=== PATIENT | female | born 1980 | race Two or more races ===

== ENCOUNTER 2023-06-02 14:36 | Emergency (ER) | payer MEDICAID, OTHER ==
[~2023-06-02] VITALS: Ht 154.9 cm; Wt 72.2 kg
[2023-06-02 16:06] LABS: Basophils # (auto) 0 10 ^3/uL (0-0.2); Basophils % (auto) 0.4 % (0.0-2.0); Eosinophils # (auto) 0 10 ^3/uL (0-0.8); Eosinophils % (auto) 0.4 % (0.0-7.0); Hematocrit 38.6 % (36.0-46.0); Hemoglobin 12.5 g/dL (12.2-16.2); Lymphocytes # (auto) 1.5 10 ^3/uL (0.4-5.4); Lymphocytes % (auto) 22.9 % (10.0-50.0); Mean Corpuscular Hemoglobin 28.5 pg (28.0-32.0); Mean Corpuscular Hgb Conc. 32.4 g/dL (32.0-36.0); Mean Corpuscular Volume 87.9 fL (80.0-100.0); Monocytes # (auto) 0.3 10 ^3/uL (0-1.3); Monocytes % (auto) 4.1 % (0.0-12.0); Neutrophils # (auto) 4.7 10 ^3/uL (1.6-8.6); Neutrophils % (auto) 72.2 % (37.0-80.0); Nucleated Red Blood Cells % 0.1 %; Red Blood Cells 4.39 10^6/uL (4.0-5.20); White Blood Cell 6.5 10^3/uL (4.4-10.8)
[2023-06-02 16:07] LABS: Alanine Aminotransferase 67 U/L (7-40); Albumin 4.4 g/dL (3.2-4.8); Alkaline Phosphatase 105 U/L (46-116); Anion Gap 10 (5-15); Aspartate Aminotransferase 96 U/L (13-40); Calcium 8.3 mg/dL (8.5-10.1); Carbon Dioxide 27 mmol/L (20-30); Chloride 100 mmol/L (98-107); Glucose 104 mg/dL (74-106); Sodium 137 mmol/L (136-145)
[2023-06-02 16:08] LABS: Bilirubin, Total 0.6 mg/dL (0.2-1.0)
[2023-06-02 16:11] LABS: Red Cell Distribution Width 21.1 % (11.8-14.3)
[2023-06-02 16:16] LABS: BUN/Creatinine Ratio 8.3 (10.0-20.0); Blood Urea Nitrogen < 5 mg/dL (9-23)
[2023-06-02 16:18] LABS: Potassium 2.7 mmol/L (3.5-5.1)
[2023-06-02] MEDS ORDERED: POTASSIUM CHL 20 Meq TABLET PO ONE ×2 (16:45→21:00)
[2023-06-02 17:06] LABS: Urine Bacteria FEW /hpf (None Seen); Urine Blood Negative /uL (Negative); Urine Clarity Clear (Clear); Urine Color Colorless (Yellow); Urine Protein, UAD Negative (Negative); Urine Specific Gravity 1.009 (1.001-1.035); Urine Urobilinogen Normal (Negative); Urine WBC 1 /hpf (0 - 5)
[2023-06-02 17:39] VITALS: BP 127/95; RESP 18; TEMP 97.2; O2SAT 99
[2023-06-02] MEDS ORDERED: MAGNESIUM OXIDE 400 MG TAB PO ONE (18:00)
[2023-06-02] MEDS ORDERED: MAGNESIUM SULFATE 1GM/100ML 100 ML IV ONE (18:00)
[2023-06-02 21:45] VITALS: PULSE 78
[2023-06-02 21:50] LABS: Chloride 100 mmol/L (98-107); Sodium 138 mmol/L (136-145)
[2023-06-02 21:51] LABS: Anion Gap 11 (5-15); Calcium 8.4 mg/dL (8.5-10.1); Carbon Dioxide 27 mmol/L (20-30)
[2023-06-02 21:56] LABS: BUN/Creatinine Ratio 8.1 (10.0-20.0); Blood Urea Nitrogen < 5 mg/dL (9-23); Glucose 105 mg/dL (74-106)
== END 2023-06-03 02:40 | disposition left against medical advice (07) ==
LOC: ER 14:36
DX: E87.6 Hypokalemia (principal); E83.42 Hypomagnesemia; M06.9 Rheumatoid arthritis, unspecified
CPT/HCPCS: 36415; 80048; 80053; 81001; 83735; 85025; 93005